=== PATIENT | male | born 1980 | race African-American/Black ===

== ENCOUNTER 2016-11-03 18:17 | Emergency (ER) | payer OTHER ==
[~2016-11-03] VITALS: Ht 177.8 cm; Wt 119.5 kg
[2016-11-03 18:44] VITALS: Ht 177.8 cm; Wt 119.5 kg
[2016-11-03] MEDS ORDERED: CYCL-319 PO (19:20)
[2016-11-03] MEDS ORDERED: IBUP800T25 PO (19:20)
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
== END 2016-11-03 19:27 | disposition home or self-care (01) ==
LOC: FTE 18:17
DX: M62.838 Other muscle spasm (principal); R40.2412 Glasgow coma scale score 13-15, at arrival to emergency department
CPT/HCPCS: 99283